=== PATIENT | female | born 1990 | race Caucasian/White ===

== ENCOUNTER 2023-09-20 12:26 | Emergency (ER) | payer SELFPAY | END 2023-09-20 17:04 | disposition home or self-care (01) | LOC: MW.ED 12:26 | DX: Z29.13 Encounter for prophylactic Rho(D) immune globulin (principal); Z67.41 Type O blood, Rh negative | CPT/HCPCS: 36415; 85460; 86850; 96372; 99282; 99283; J2790 ==